=== PATIENT | female | born 1965 | race Caucasian/White ===

== ENCOUNTER 2016-11-06 18:38 | Emergency (ER) | payer BC | END 2016-11-06 21:00 | disposition home or self-care (01) | LOC: ER 18:38 | DX: N13.2 Hydronephrosis with renal and ureteral calculous obstruction (principal); N13.4 Hydroureter; E66.9 Obesity, unspecified; F17.200 Nicotine dependence, unspecified, uncomplicated; Z88.6 Allergy status to analgesic agent | CPT/HCPCS: 36415; 96361; 96374; 96375; J1885 ==